=== PATIENT | female | born 1955 | race Hispanic/Latino ===

== ENCOUNTER 2017-10-13 08:21 | Day surgery (SDC) | payer MEDICAID ==
[~2017-10-13] VITALS: Ht 165.1 cm; Wt 78.6 kg
[~2017-10-13 08:21] MED LIST: SODIUM CHLORIDE 0.9% 1000ML 1,000 ML IV ONE
[2017-10-13 09:19] VITALS: BP 169/85
[2017-10-13] MEDS ORDERED: SERT50TA PO (09:38)
[2017-10-13] MEDS ORDERED: PLAQUENIL (09:38)
[2017-10-13] MEDS ORDERED: AMLODIPINE (09:38)
[2017-10-13] MEDS ORDERED: FOLIC ACID (09:38)
[2017-10-13] MEDS ORDERED: SULFASALAZINE (09:38)
[2017-10-13] MEDS ORDERED: PROVENTIL (09:38)
[2017-10-13] MEDS ORDERED: GLYCOPYRROLATE 0.2 MG/ML 5 ML VIAL ONE (10:16)
[2017-10-13] MEDS ORDERED: SUCCINYLCHOLINE CHLORIDE 20 MG/ML 10 ML VIAL ONE (10:16)
[2017-10-13 10:23] VITALS: BP 109/57
[2017-10-13 10:43] VITALS: BP 128/59
== END 2017-10-13 11:00 ==
LOC: DAH 08:21 → ENDO 08:21
PROVIDERS: ATTEND Internal Medicine Gastroenterology
DX: D12.4 Benign neoplasm of descending colon (principal); D12.2 Benign neoplasm of ascending colon; K62.1 Rectal polyp; I10 Essential (primary) hypertension; F41.9 Anxiety disorder, unspecified; F32.9 Major depressive disorder, single episode, unspecified; M19.90 Unspecified osteoarthritis, unspecified site; Z90.49 Acquired absence of other specified parts of digestive tract; Z79.899 Other long term (current) drug therapy; Z68.30 Body mass index [BMI] 30.0-30.9, adult
CPT/HCPCS: 45380; 45385; 88305; A4606; J0330; J3490; J7030